=== PATIENT | male | born 1995 | race African-American/Black ===

== ENCOUNTER 2021-12-25 09:02 | Emergency (ER) | payer OTHER ==
[2021-12-25] MEDS ORDERED: EPINEPHrine 1:1,000 0.3 MG/0.3 ML SYR IM ONE (09:09)
[2021-12-25] MEDS ORDERED: methylPREDNISolone NA SUCC 125 MG/2 ML VIAL IVPUSH ONE (09:09)
[2021-12-25 09:47] VITALS: BMI 29.0
[2021-12-25 14:32] VITALS: BP 121/85; PULSE 80; TEMP 97.8
== END 2021-12-25 14:32 ==
LOC: JER 09:02
PROC: 3E033GC Introduction of Other Therapeutic Substance into Peripheral Vein, Percutaneous Approach (ICD-10-PCS; principal; 2021-12-25)
PROC: 3E033GC Introduction of Other Therapeutic Substance into Peripheral Vein, Percutaneous Approach (ICD-10-PCS; 2021-12-25)
PROC: 3E023GC Introduction of Other Therapeutic Substance into Muscle, Percutaneous Approach (ICD-10-PCS; 2021-12-25)
DX: T78.2XXA Anaphylactic shock, unspecified, initial encounter (principal)
CPT/HCPCS: 82962; 99284-25